=== PATIENT | male | born 1980 | race Hispanic/Latino ===

== ENCOUNTER 2019-03-24 08:30 | Observation (INO) | payer BC ==
[2019-03-23 12:02] VITALS: BP 126/68
[2019-03-24] VITALS (19 sets, daily range): BP systolic 97–135; BP diastolic 42–98
[~2019-03-24] VITALS: Ht 170.2 cm; Wt 91.2 kg
[2019-03-24] MEDS: CEFAZOLIN SODIUM 1 GM VIAL IVP SCH ×3 (06:00→21:35)
[~2019-03-24 08:30] MED LIST: CHOL100046 PO; OMEG-148 PO; OMEP-298 PO; SERT50TA12 PO
[2019-03-24] MEDS ORDERED: LACTATED RINGERS 1000ML 1,000 ML IV ONE (11:54)
[2019-03-24] MEDS ORDERED: PROPOFOL 10 MG/ML 20ML VIAL IV ONE (15:04)
[2019-03-24] MEDS ORDERED: MIDAZOLAM HCL 1 MG/ML 2ML VIAL ONE (15:04)
[2019-03-24] MEDS ORDERED: ROPIVACAINE 0.5% 5MG/ML 30ML IJ ONE (15:06)
[2019-03-24] MEDS ORDERED: FENTANYL CITRATE PF 50 MCG/1 ML 2ML VIAL ONE (15:08)
[2019-03-24] MEDS ORDERED: DEXAMETHASONE SOD PHOSPHATE 4 MG/ML 1ML VIAL ONE (15:41)
[2019-03-24] MEDS ORDERED: ONDANSETRON HCL 4 MG/2 ML VIAL ONE (15:42)
[2019-03-24] MEDS ORDERED: PHENYLEPHRINE HCL 10 MG/ML 1ML VIAL IV ONE (16:41)
[2019-03-24] MEDS ORDERED: DEXTROSE 5%-LACTATED RINGERS 1,000 ML IV ONE (18:15)
[2019-03-24 19:13] LABS: HEMATOCRIT 44.6 % (42-54)
[2019-03-24] MEDS ORDERED: BISACODYL 10 MG SUPP.RECT RC PRN (19:15)
[2019-03-24] MEDS ORDERED: MAGNESIUM HYDROXIDE 30 ML/UDCUP PO PRN (19:15)
[2019-03-24] MEDS ORDERED: ACETAMINOPHEN 325 MG TAB PO PRN (19:15)
[2019-03-24] MEDS ORDERED: DEXTROSE 5%-LACTATED RINGERS 1,000 ML IV SCH (19:15)
[2019-03-24] MEDS: MORPHINE SULFATE 10 MG/ML 1ML VIAL IM PRN (20:08)
[2019-03-24] MEDS: PROMETHAZINE HCL 25 MG/ML 1ML AMPULE IM PRN (20:08)
[2019-03-25] MEDS: PROMETHAZINE HCL 25 MG/ML 1ML AMPULE IM PRN (00:10)
[2019-03-25] MEDS: MORPHINE SULFATE 10 MG/ML 1ML VIAL IM PRN (00:10)
[2019-03-25 00:35] LABS: HEMATOCRIT 41.3 % (42-54)
[2019-03-25 03:30] VITALS: BP 122/61
[2019-03-25] MEDS: CEFAZOLIN SODIUM 1 GM VIAL IVP SCH ×2 (05:00→14:46)
[2019-03-25 06:08] LABS: HEMATOCRIT 38.9 % (42-54)
[2019-03-25 08:00] VITALS: BP 102/49
[2019-03-25] MEDS ORDERED: ASPIRIN 325 MG TABLET PO SCH (09:00)
[2019-03-25 11:00] VITALS: BP 97/51
--- NOTE | 2019-03-25 11:04 | NUR ---
NOTE DR MAGALLON CAME AND AND ASSESSED PATIENT AT THIS TIME. HE WILL COMPLETE LAST DOSE OF IV ABX AND WILL BE DISCHARGED HOME LATER TODAY AND FOLLOW UP WITH HIM THURSDAY AT HIS OFFICE. HE GAVE ORDERS NOT TO CHANGE DRESSING SINCE IT WAS CLEAN DRY AND INTACT AND HE WILL REMOVE IT AT HIS OFFICE THURSDAY WHEN HE GOES FOR F/U.
--- NOTE | 2019-03-25 15:00 | NUR ---
CM NOTE PT HERE FOR SCHEDULED OPP, OVERNIGHT OBSERVATION; NO TRIGGERS TO CM, NO CONCERNS VOICED BY PRIMARY RN, DETROBLES CM ASSESSMENT DEFERRED AT THIS TIME Addendum: 03/25/19 at 2037 by NATHAN ROCHA RN CM Amended: Links added.
--- NOTE | 2019-03-25 15:55 | NUR ---
NOTE DISCHARGE INSTRUCTIONS GIVEN AT THIS TIME. VERBALIZED UNDERSTANDING. REFER TO DC SUMMARY FOR DETAILS. STABLE UPON LEAVING. NO DISTRESS OR PAIN REPORTED.
== END 2019-03-25 16:00 | disposition home or self-care (01) ==
LOC: DAHIP 11:34 → 4CH 18:00 → 4BH 03-25 04:21
DX: M22.41 Chondromalacia patellae, right knee (principal); M17.11 Unilateral primary osteoarthritis, right knee; K21.9 Gastro-esophageal reflux disease without esophagitis; M77.9 Enthesopathy, unspecified; M89.9 Disorder of bone, unspecified; F43.10 Post-traumatic stress disorder, unspecified; S83.206A Unspecified tear of unspecified meniscus, current injury, right knee, initial encounter; X58.XXXA Exposure to other specified factors, initial encounter; Y93.89 Activity, other specified; Y92.89 Other specified places as the place of occurrence of the external cause; Y99.8 Other external cause status; Z79.899 Other long term (current) drug therapy
CPT/HCPCS: 27332; 27446; 36415 ×2; 85014 ×3; 85018 ×3; 88304; 88311; 94760; 96372 ×2; 96374; 96376; 97116; 97161; A4215; A4221; A4222; A4223; A4600; A4606; A4649; A4663; A4930 ×3; A6223; A6260; A6447; C1713; G0378 ×22; G8978; G8979; G8980; G8981; G8982; G8983; J0690 ×4; J1100; J2250; J2270 ×3; J2370; J2405; J2550 ×2; J2704; J2795; J3010; J3490; J7120 ×2